=== PATIENT | female | born 1995 | race Hispanic/Latino ===

== ENCOUNTER 2025-09-12 03:53 | Inpatient (IN) | payer SELFPAY ==
[2025-09-12 04:42] LABS: Glucose, Urine Negative (Negative); Protein,Urine Dip Negative (Negative); RBC 0-2 /HPF (0-5)
[2025-09-12 04:50] LABS: Amphetamine,Urine NEGATIVE (NEGATIVE); Barbiturate,Urine NEGATIVE (NEGATIVE); Benzodiazepine,Urine NEGATIVE (NEGATIVE); Cocaine,Urine NEGATIVE (NEGATIVE); Methadone,Urine NEGATIVE (NEGATIVE); Opiate,Urine NEGATIVE (NEGATIVE); PCP,Urine NEGATIVE (NEGATIVE); THC,Urine NEGATIVE (NEGATIVE)
[2025-09-12 05:42] LABS: BASOPHIL % 0.4 % (0.1-1.2); Basophil (Absolute #) 0.03 x10^3/uL (0.01-0.08); Eosinophil (Absolute #) 0.02 x10^3/uL (0.04-0.36); Hematocrit 39.9 % (34.1-44.9); Hemoglobin 13.3 g/dL (11.2-15.7); IMMATURE GRAN # 0.04 x10^3u/L (0.001-0.031); IMMATURE GRAN % 0.5 % (0.001-0.429); Lymphocyte (Absolute #) 2.23 x10^3/uL (1.18-3.74); Mean Corpuscular Hemoglobin 28.1 pg (25.6-32.2); Mean Corpuscular Hgb Concent. 33.3 g/dL (32.2-35.5); Monocyte (Absolute #) 0.65 x10^3/uL (0.24-0.86); NUCLEATED RBC # 0.00 x10^3u/L (0.00-0.012); NUCLEATED RBC % 0.0 % (0.00-0.2); Platelet Count 241 x10^3/uL (182-369); Red Blood Count 4.74 x10^6/uL (3.93-5.22); White Blood Count 7.7 x10^3/uL (3.98-10.04)
[2025-09-12] MEDS ORDERED: Lactated Ringers 1,000 ML IV ONE ×2 (06:13→09:49)
[2025-09-12] MEDS: Lactated Ringers 1,000 ML IV ONE (06:15)
[2025-09-12 06:37] LABS: ABO TYPING O; RH TYPING POSITIVE
[2025-09-12] MEDS: Lactated Ringers 1,000 ML IV SCH (07:17)
[2025-09-12] MEDS ORDERED: Reglan 10 MG/2 ML IV SCH (08:00)
[2025-09-12] MEDS ORDERED: SOD CITRATE-CITRIC ACID SOLN PO SCH (08:00)
[2025-09-12] MEDS ORDERED: Pepcid 20 MG VIAL IV SCH (08:00)
[2025-09-12] MEDS ORDERED: Astramorph-Pf 5 MG/10 ML ONE (09:06)
[2025-09-12] MEDS ORDERED: Pitocin 10 UNITS/ML ONE ×2 (09:07→09:56)
[2025-09-12 09:09] LABS: INR 0.89 (0.8-3.0); PROTIME 10.0 SECONDS (9.4-12.5); PTT 26.7 SECONDS (25.1-36.5)
[2025-09-12] MEDS ORDERED: Ephedrine Sulfate 50 MG/ML ONE (09:12)
[2025-09-12] MEDS ORDERED: Zofran 4 MG/2 ML VIAL ONE (09:19)
[2025-09-12] MEDS ORDERED: Marcaine 0.5%/Epinephrine 10 ML ONE (09:54)
[2025-09-12] MEDS ORDERED: Versed 2 MG/2 ML Injection ONE (10:02)
[2025-09-12] MEDS ORDERED: Zofran 4 MG/2 ML VIAL IV PRN (11:53)
[2025-09-12] MEDS ORDERED: Nubain 10 MG/ML IV PRN (11:53)
[2025-09-12] MEDS ORDERED: CLARITIN 10 MG PO PRN (11:53)
[2025-09-12] MEDS ORDERED: DEMEROL 50 MG IV PRN (11:53)
[2025-09-12] MEDS ORDERED: BENADRYL 50 MG/ML IV PRN (11:53)
[2025-09-12] MEDS ORDERED: Narcan 0.4 MG/ML IV PRN (11:53)
[2025-09-12] MEDS ORDERED: HOLD NARCOTIC ANALGESICS AND SEDATIVES X24 HR MC SCH (12:00)
[2025-09-12] MEDS ORDERED: MORPHINE SULFATE 4 MG INJ IV PRN (12:02)
[2025-09-12] MEDS ORDERED: TUCKS TP PRN (12:33)
[2025-09-12] MEDS ORDERED: Dermoplast Spray TP PRN (12:33)
[2025-09-12] MEDS ORDERED: Mylicon 80MG PO PRN (12:33)
[2025-09-12] MEDS ORDERED: Dulcolax 10 MG SUPP PR PRN (12:33)
[2025-09-12] MEDS ORDERED: LANSINOH 40 GM TOP PRN (12:33)
[2025-09-12] MEDS ORDERED: CORTISONE 1% CREAM TP PRN (12:33)
[2025-09-12] MEDS ORDERED: Anucort-HC SUPPOSITORY PR PRN (12:33)
[2025-09-12] MEDS: Dextrose 5%-Lr IV Solution 1000 ML 1,000 ML IV SCH (12:39)
[2025-09-12] MEDS: TRANEXAMIC 1,000 MG/100ML-NACL 1,000 MG/100 ML PIGGYBACK IV ONE (13:46)
[2025-09-12 13:53] LABS: BASOPHIL % 0.1 % (0.1-1.2); Basophil (Absolute #) 0.02 x10^3/uL (0.01-0.08); Eosinophil (Absolute #) 0 x10^3/uL (0.04-0.36); Hematocrit 33.3 % (34.1-44.9); Hemoglobin 10.7 g/dL (11.2-15.7); IMMATURE GRAN # 0.07 x10^3u/L (0.001-0.031); IMMATURE GRAN % 0.5 % (0.001-0.429); Lymphocyte (Absolute #) 1.23 x10^3/uL (1.18-3.74); Mean Corpuscular Hemoglobin 28.3 pg (25.6-32.2); Mean Corpuscular Hgb Concent. 32.1 g/dL (32.2-35.5); Monocyte (Absolute #) 0.77 x10^3/uL (0.24-0.86); NUCLEATED RBC # 0.00 x10^3u/L (0.00-0.012); NUCLEATED RBC % 0.0 % (0.00-0.2); Platelet Count 190 x10^3/uL (182-369); Red Blood Count 3.78 x10^6/uL (3.93-5.22); White Blood Count 14.4 x10^3/uL (3.98-10.04)
[2025-09-12 15:07] LABS: Glucose, Urine Negative (Negative); Protein,Urine Dip Negative (Negative); RBC 0-2 /HPF (0-5); WBC 0-2 /HPF (0-5)
[2025-09-12] MEDS: Docusate Sodium 100 MG PO SCH (22:00)
[2025-09-13] MEDS: PERCOCET TABLET 5/325MG PO PRN (02:18)
[2025-09-13 05:05] LABS: BASOPHIL % 0.1 % (0.1-1.2); Basophil (Absolute #) 0.01 x10^3/uL (0.01-0.08); Eosinophil (Absolute #) 0.03 x10^3/uL (0.04-0.36); Hematocrit 30.3 % (34.1-44.9); Hemoglobin 9.7 g/dL (11.2-15.7); IMMATURE GRAN # 0.04 x10^3u/L (0.001-0.031); IMMATURE GRAN % 0.4 % (0.001-0.429); Lymphocyte (Absolute #) 2.60 x10^3/uL (1.18-3.74); Mean Corpuscular Hemoglobin 28.0 pg (25.6-32.2); Mean Corpuscular Hgb Concent. 32.0 g/dL (32.2-35.5); Monocyte (Absolute #) 0.82 x10^3/uL (0.24-0.86); NUCLEATED RBC # 0.00 x10^3u/L (0.00-0.012); NUCLEATED RBC % 0.0 % (0.00-0.2); Platelet Count 171 x10^3/uL (182-369); Red Blood Count 3.46 x10^6/uL (3.93-5.22); White Blood Count 10.7 x10^3/uL (3.98-10.04)
[2025-09-13 08:15] LABS: RPR Non Reactive (Non Reactive)
--- NOTE | 2025-09-13 08:28 | PCM.NOTE ---
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 mild lochia, she has been out of bed and ambulated with no complaints. she is tolerating po intake and passing gas. Objective Exam General Appearance: no apparent distress Respiratory Exam: normal breath sounds Cardiovascular Exam: regular rate/rhythm Gastrointestinal/Abdomen Exam: soft, normal bowel sounds, other (optifoam dressing clean, dry, intact) Extremity Exam: normal inspection Objective Data Vital Signs: Vital Signs - 24 hr Temp Pulse Resp BP BP Pulse Ox 09/13/25 04:00 98.8 F 96 H 16 108/58 98 09/13/25 03:00 97 09/13/25 02:00 98 09/13/25 00:59 99 09/13/25 00:00 98.2 F 95 H 18 94/55 97 09/12/25 23:00 98 09/12/25 22:00 98 09/12/25 21:00 98 09/12/25 20:00 98.8 F 81 18 101/62 98 09/12/25 18:52 97 09/12/25 18:00 98.3 F 81 15 96/51 99 09/12/25 16:53 98 09/12/25 16:45 97.8 F 09/12/25 16:30 98.0 F 84 15 97/56 98 09/12/25 16:00 99 09/12/25 15:35 80 16 106/70 98 09/12/25 15:00 98.1 F 88 16 112/68 98 09/12/25 14:40 97.9 F 83 16 98/68 99 09/12/25 14:00 97.3 F 92 H 16 98/68 100 09/12/25 13:30 78 16 87/49 100 09/12/25 13:00 100 09/12/25 12:50 97.8 F 86 16 87/59 100 09/12/25 12:20 86 16 97/56 100 09/12/25 12:10 115 H 16 95/49 100 09/12/25 12:05 97.6 F 09/12/25 12:00 100 09/12/25 11:50 97.8 F 94 H 16 98/55 99 09/12/25 11:35 97.3 F 112 H 16 102/51 100 09/12/25 11:20 97.8 F 103 H 16 108/52 100 09/12/25 08:55 77 18 126/76 Pain Assessment - Last Documented Pain Intensity 2 Pain Scale Used 0-10 Pain Scale Intake and Output: Intake & Output 09/10/25 09/11/25 09/12/25 09/13/25 11:59 11:59 11:59 11:59 Intake Total 1400 Output Total 1575 Balance -175 Weight 70.307 kg Lab Results: Lab Results-Last 24 Hours 09/12/25 09/12/25 09/12/25 Range/Units 05:24 05:24 09:41 WBC (3.98-10.04) x10^3/uL RBC (3.93-5.22) x10^6/uL Hgb (11.2-15.7) g/dL Hct (34.1-44.9) % MCV (79.4-94.8) fL MCH (25.6-32.2) pg MCHC (32.2-35.5) g/dL RDW (11.7-14.4) % Plt Count (182-369) x10^3/uL MPV (9.4-12.3) fL Gran % (34.0-71.1) % Immature Gran % (Auto) (0.001-0.429) % Nucleat RBC Rel Count (0.00-0.2) % Eos # (Auto) (0.04-0.36) x10^3/uL Immature Gran # (Auto) (0.001-0.031) x10^3u/L Absolute Lymphs (auto) (1.18-3.74) x10^3/uL Absolute Monos (auto) (0.24-0.86) x10^3/uL Absolute Nucleated RBC (0.00-0.012) x10^3u/L Lymphocytes % (19.3-51.7) % Monocytes % (4.7-12.5) % Eosinophils % (0.7-5.8) % Basophils % (0.1-1.2) % Absolute Granulocytes (1.56-6.13) x10^3/uL Basophils # (0.01-0.08) x10^3/uL PT 10.0 (9.4-12.5) SECONDS INR 0.89 (0.8-3.0) APTT 26.7 (25.1-36.5) SECONDS Urine Color Yellow (Yellow) Urine Appearance Clear (Clear) Urine pH 6.5 (4.6-8.0) Ur Specific [place] 1.010 (1.005-1.030) Urine Protein Negative (Negative) Urine Glucose (UA) Negative (Negative) mg/dL Urine Ketones Negative (Negative) Urine Blood Small A (Negative) Urine Nitrite Negative (Negative) Urine Bilirubin Negative (Negative) Urine Urobilinogen 0.2 (0.2) mg/dL Ur Leukocyte Esterase Negative (Negative) U Hyaline Cast (Auto) NONE SEEN (0-2) /LPF Urine Microscopic RBC 0-2 (0-5) /HPF Urine Microscopic WBC 0-2 (0-5) /HPF Ur Epithelial Cells None Seen (None Seen) /HPF Urine Bacteria None Seen (None Seen) /HPF RPR Non Reactive (Non Reactive) 09/12/25 09/13/25 Range/Units 13:50 05:05 WBC 14.4 H 10.7 H (3.98-10.04) x10^3/uL RBC 3.78 L 3.46 L (3.93-5.22) x10^6/uL Hgb 10.7 L 9.7 L (11.2-15.7) g/dL Hct 33.3 L 30.3 L (34.1-44.9) % MCV 88.1 87.6 (79.4-94.8) fL MCH 28.3 28.0 (25.6-32.2) pg MCHC 32.1 L 32.0 L (32.2-35.5) g/dL RDW 14.1 14.1 (11.7-14.4) % Plt Count 190 171 L (182-369) x10^3/uL MPV 9.6 9.5 (9.4-12.3) fL Gran % 85.4 H 67.2 (34.0-71.1) % Immature Gran % (Auto) 0.5 H 0.4 (0.001-0.429) % Nucleat RBC Rel Count 0.0 0.0 (0.00-0.2) % Eos # (Auto) 0 L 0.03 L (0.04-0.36) x10^3/uL Immature Gran # (Auto) 0.07 H 0.04 H (0.001-0.031) x10^3u/L Absolute Lymphs (auto) 1.23 2.60 (1.18-3.74) x10^3/uL Absolute Monos (auto) 0.77 0.82 (0.24-0.86) x10^3/uL Absolute Nucleated RBC 0.00 0.00 (0.00-0.012) x10^3u/L Lymphocytes % 8.6 L 24.3 (19.3-51.7) % Monocytes % 5.4 7.7 (4.7-12.5) % Eosinophils % 0.0 L 0.3 L (0.7-5.8) % Basophils % 0.1 0.1 (0.1-1.2) % Absolute Granulocytes 12.28 H 7.21 H (1.56-6.13) x10^3/uL Basophils # 0.02 0.01 (0.01-0.08) x10^3/uL PT (9.4-12.5) SECONDS INR (0.8-3.0) APTT (25.1-36.5) SECONDS Urine Color (Yellow) Urine Appearance (Clear) Urine pH (4.6-8.0) Ur Specific [place] (1.005-1.030) Urine Protein (Negative) Urine Glucose (UA) (Negative) mg/dL Urine Ketones (Negative) Urine Blood (Negative) Urine Nitrite (Negative) Urine Bilirubin (Negative) Urine Urobilinogen (0.2) mg/dL Ur Leukocyte Esterase (Negative) U Hyaline Cast (Auto) (0-2) /LPF Urine Microscopic RBC (0-5) /HPF Urine Microscopic WBC (0-5) /HPF Ur Epithelial Cells (None Seen) /HPF Urine Bacteria (None Seen) /HPF RPR (Non Reactive) Medications: Medications Generic Name Dose Route Start Last Admin Trade Name Freq PRN Reason Stop Dose Admin Acetaminophen 500 - 1,000 mg 09/12/25 12:33 Acetaminophen 500 Mg Tablet PO 10/12/25 12:32 Q4H PRN PRN MILD PAIN Hydrocodone Bitart/Acetaminophen 1 tab 09/12/25 12:33 Hydrocodone/Apap 5/325 1 Tab Tablet PO 09/17/25 12:32 Q4H PRN PRN SEVERE PAIN Benzocaine 1 gm 09/12/25 12:33 Benzocaine/Lanolin/Aloe Vera 85 Gm Can TP 10/12/25 12:32 UD PRN PAIN Bisacodyl 10 mg 09/12/25 12:33 Bisacodyl 10 Mg Supp.Rect NC 10/12/25 12:32 PRN PRN CONSTIPATION Diphenhydramine HCl 12.5 - 25 mg 09/12/25 11:53 Diphenhydramine Hcl 50 Mg/Ml Vial IV 09/13/25 11:52 Q6H PRN PRN ITCHING Docusate Sodium 100 mg 09/12/25 22:00 09/12/25 22:00 Docusate Sodium 100 Mg Capsule PO 10/12/25 21:59 100 mg BID HERMES Administration Emollient Ointment 0 gm 09/12/25 12:33 Lansinoh 40 Gm Tube TOP 10/12/25 12:32 PRN PRN PAIN Hydrocortisone 0.5 gm 09/12/25 12:33 Hydrocortisone 1% Cream 28 Gm Tube TP 10/12/25 12:32 PRN PRN ITCHING Hydrocortisone Acetate 25 mg 09/12/25 12:33 Hydrocortisone Acetate 25 Mg Supp.Rect NC 10/12/25 12:32 PRN PRN HEMORRHOIDS Lactated Ringer's 1,000 mls @ 125 mls/hr 09/12/25 07:30 09/12/25 07:17 Lactated Ringers IV 10/12/25 07:29 125 mls/hr .Q8H HERMES Administration Dextrose/Lactated Ringer's 1,000 mls @ 125 mls/hr 09/12/25 12:00 09/12/25 15:00 Dextrose 5%-Lr Iv Solution 1000 Ml IV 10/12/25 11:59 125 mls/hr .Q8H HERMES Administration Ibuprofen 800 mg 09/12/25 12:33 Ibuprofen 400 Mg Tablet PO 10/12/25 12:32 Q6H PRN PRN MODERATE PAIN Loratadine 10 mg 09/12/25 11:53 Loratadine 10 Mg Tablet PO 09/13/25 11:52 QDP PRN ITCHING Meperidine HCl 12.5 mg 09/12/25 11:53 Meperidine Hcl 50 Mg/Ml Carp IV 09/13/25 11:52 PRN PRN SHAKING/TREMORS Morphine Sulfate 2 mg 09/12/25 12:02 Morphine Sulfate 4 Mg/Ml Injection IV 09/13/25 12:01 .Q30MIN PRN PRN SEVERE PAIN Nalbuphine HCl 5 mg 09/12/25 11:53 Nalbuphine Hcl 10 Mg/Ml Ampul IV 09/13/25 11:52 Q6H PRN PRN ITCHING Naloxone HCl 0.1 mg 09/12/25 11:53 Naloxone Hcl 0.4 Mg/Ml Ml IV 09/13/25 11:52 PRN PRN RESPIRATORY DEPRESSION Non-Formulary Medication 1 each 09/12/25 12:00 Hold Narcotic Analgesics/Sedatives 1 Each Each 09/13/25 11:59 PRN HERMES Ondansetron HCl 4 mg 09/12/25 11:53 Ondansetron Hcl 4 Mg/2 Ml Vial IV 09/13/25 11:52 PRN PRN NAUSEA Oxycodone/Acetaminophen 1 - 2 tab 09/12/25 11:53 09/13/25 02:18 Oxycodone Hcl/Apap 5 Mg/325 Mg Tablet PO 09/13/25 11:52 1 tab Q4H PRN PRN Administration MODERATE PAIN Polysaccharide Iron Complex 150 mg 09/13/25 10:00 Iron Polysaccharides Complex 150 Mg Capsule PO 10/13/25 09:59 DAILY HERMES Simethicone 80 mg 09/12/25 12:33 Simethicone 80 Mg Tab.Chew PO 10/12/25 12:32 QID PRN PRN INDIGESTION [place] 1 pad 09/12/25 12:33 [place] 1 Pad Med..Pad TP 10/12/25 12:32 PRN PRN ITCHING Discontinued Medications Generic Name Dose Route Start Last Admin Trade Name Freq PRN Reason Stop Dose Admin Bupivacaine HCl/Epinephrine Bitart Confirm 09/12/25 09:54 Bupivacaine Hcl/Epinephrine 10 Ml Vial Administered 09/12/25 09:55 Dose 40 ml .ROUTE .STK-MED ONE Citric Acid/Sodium Citrate 30 ml 09/12/25 08:00 Citric Acid/Sodium Citrate 30 Ml Solution PO 09/12/25 11:47 1HRPRIOR HERMES Ephedrine Sulfate Confirm 09/12/25 09:12 Ephedrine Sulfate 50 Mg/Ml Administered 09/12/25 09:13 Dose 50 mg .ROUTE .STK-MED ONE Famotidine 20 mg 09/12/25 08:00 Famotidine 20 Mg/1 Vial IV 09/12/25 11:47 1HRPRIOR HERMES Lactated Ringer's Confirm 09/12/25 06:13 Lactated Ringers Administered 09/12/25 06:14 Dose 1,000 mls @ ud IV .STK-MED ONE Lactated Ringer's 1,000 mls @ 999 mls/hr 09/12/25 06:14 09/12/25 06:15 Lactated Ringers IV 09/12/25 07:14 999 mls/hr .Q1H1M ONE Administration Cefazolin Sodium 2 gm/ Sodium 100 mls @ 200 mls/hr 09/12/25 07:46 09/12/25 08:55 Chloride IV 09/12/25 08:15 200 mls/hr ONCALLTOOR ONE Administration Lactated Ringer's Confirm 09/12/25 09:49 Lactated Ringers Administered 09/12/25 09:50 Dose 1,000 mls @ ud IV .STK-MED ONE TRANEXAMIC ACID IN NACL,ISO-OS 1,000 mg in 100 mls @ 600 mls/hr 09/12/25 13:41 09/12/25 13:46 Tranexamic 1,000 Mg/100ml-Nacl IV 09/12/25 13:50 600 mls/hr ONCE ONE Administration Metoclopramide HCl 10 mg 09/12/25 08:00 Metoclopramide Hcl 10 Mg/2 Ml Vial IV 09/12/25 11:47 1HRPRIOR HERMES Midazolam HCl Confirm 09/12/25 10:02 Midazolam Hcl 2 Mg/2 Ml Vial Administered 09/12/25 10:03 Dose 2 mg .ROUTE .STK-MED ONE Morphine Sulfate Confirm 09/12/25 09:06 Morphine Sulfate 5 Mg/10 Ml Pf Ampul Administered 09/12/25 09:07 Dose 5 mg .ROUTE .STK-MED ONE Ondansetron HCl Confirm 09/12/25 09:19 Ondansetron Hcl 4 Mg/2 Ml Vial Administered 09/12/25 09:20 Dose 4 mg .ROUTE .STK-MED ONE Oxytocin Confirm 09/12/25 09:07 Oxytocin 10 Units/Ml 10 Units/Ml Vial Administered 09/12/25 09:08 Dose 20 units .ROUTE .STK-MED ONE Oxytocin Confirm 09/12/25 09:56 Oxytocin 10 Units/Ml 10 Units/Ml Vial Administered 09/12/25 09:57 Dose 10 units .ROUTE .STK-MED ONE Assessment/Plan (1) Status post repeat low transverse section Current Visit: Yes Status: Acute Assessment & Plan: doing well, BP normal and patient is doing well today. cbc noted. routine postop care continued Code(s): Z98.891 - HISTORY OF UTERINE SCAR FROM PREVIOUS SURGERY
--- NOTE | 2025-09-13 09:45 | OP ---
SURGERY DATE/TIME: 09/12/2025 [id number] PREOPERATIVE DIAGNOSIS: History of prior section, in active labor. POSTOPERATIVE DIAGNOSIS: History of prior section, in active labor. PROCEDURE: Repeat low transverse section. SURGEON: Hakan Wu MD ANESTHESIA: Spinal by Ochoa Dsouza CRNA. QUANTITATIVE BLOOD LOSS: 677 mL. URINE: 300 mL of clear straw-colored urine in the Mathias. SPECIMENS: None. DESCRIPTION OF PROCEDURE AND FINDINGS: The patient presented to Labor and Delivery this morning with regular contractions and cervical change and was found to be in early labor, therefore, was consented for repeat low transverse section, taken to the operating room where she underwent spinal anesthesia and then was prepped and draped in usual sterile fashion. After adequate level of anesthesia was assessed, a low transverse skin incision was made by knife through the area of the previous scar, carried down through the subcutaneous fat to the level of the fascia. Fascia was nicked on both sides of the midline and extended into horizontal using curved Louie scissors. Superior free edge of the fascia was then grasped with David clamps and the underlying rectus muscles were dissected free. The same was repeated inferiorly. Peritoneal cavity was then entered bluntly and in horizontal fashion extended. Bladder blade was then inserted. Bladder flap was created and reflected over the lower uterine segment. Then, a horizontal uterine incision was made by knife, carried down to the amniotic membrane level which was carefully artificially ruptured and revealed clear fluid. A viable male from the vertex presentation was delivered with a strong cry present on the operative field. Oropharynx and nares were bulb suctioned free, then the cord was clamped and cut and he was handed off to the waiting nursery team. The placenta was manually extracted and then uterus was exteriorized. Uterine cavity was sponge curetted clean with lap sponge, and then uterine incision was closed with #1 chromic in a running locked fashion. Good closure and good hemostasis were achieved at that level. Posterior cul-de-sac was wiped free of blood and clot with a moist lap sponge, and then the uterus was returned to the peritoneal cavity. Lateral gutters were wiped free of blood and clot. Uterine incision was again carefully inspected at that level and noted to be well closed with good hemostasis. At that point, I verified with Anesthesia, there was clear straw-colored urine in the Mathias catheter, no indications of any complications. Next, the fascia was closed with 0 Vicryl in a running fashion. Good closure and good hemostasis were achieved at that level. Subcutaneous fat was irrigated with warm sterile saline and any areas of bleeding were cauterized with electrocautery. Skin layer was then closed with 4-0 undyed Vicryl in a running subcuticular fashion with good closure achieved at that level. Steri-Strips and an occlusive dressing were placed over the incision. She was transferred to the recovery room in good condition.
[2025-09-13] MEDS: FERREX 150 PO SCH (10:23)
[2025-09-13] MEDS: THERAGRAN MULTIVITAMIN PO SCH (10:24)
[2025-09-13] MEDS: Flagyl 500 MG PO SCH (10:25)
[2025-09-13] MEDS: SYNTHROID 50 MCG PO SCH (10:26)
[2025-09-13] MEDS: Adacel Vial IM ONE (10:39)
[2025-09-13] MEDS: NORCO 5/325 MG PO PRN (15:43)
[2025-09-14] MEDS: MOTRIN 400 MG PO PRN (00:15)
--- NOTE | 2025-09-14 11:23 | PCM.DS ---
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 arrived in active labor the day after removal of cerclage with MFM Dr Cooper. doing great postop, mild lochia, pain well controlled, tolerating po intake - Vitals & Intake/Output Vital Signs: Vital Signs Temperature 97.7 F 09/14/25 08:42 Pulse Rate 79 09/14/25 08:42 Respiratory Rate 14 09/14/25 08:42 Blood Pressure 111/59 09/14/25 08:42 O2 Sat by Pulse Oximetry 98 09/14/25 08:42 Intake & Output: Intake & Output 09/11/25 09/12/25 09/13/25 09/14/25 11:59 11:59 11:59 11:59 Intake Total 1900 1000 Output Total 1575 Balance 325 1000 Weight 70.307 kg - Lab Result Diagrams: 09/13/25 05:05 Micro Results-Entire Visit: Microbiology 09/12/25 09:41 Urine Culture - Final Catherized NO GROWTH 09/12/25 04:31 Urine Culture - Final Urine, Void NO GROWTH Discharge Exam General Appearance: no apparent distress Neurologic Exam: alert, oriented x 3 Respiratory Exam: normal breath sounds, lungs clear, No respiratory distress Cardiovascular Exam: regular rate/rhythm, normal heart sounds Gastrointestinal/Abdomen Exam: other (optifoam dressing clean, dry, intact) Extremity Exam: normal inspection, normal range of motion Skin Exam: normal color, warm, dry Final Diagnosis/Problem List - Final Discharge Diagnosis/Problem (1) Status post repeat low transverse section Current Visit: Yes Status: Acute Code(s): Z98.891 - HISTORY OF UTERINE SCAR FROM PREVIOUS SURGERY - Discharge Disposition: Home, Self-Care Condition: Stable Prescriptions: New Hydrocodone/Acetaminophen [Hydrocodone-Acetamin 5-325 mg] 1 tab PO Q6HPRN PRN #20 tablet MDD 4 PRN Reason: Pain Continue Levothyroxine Sodium 50 Mcg [Synthroid 50 Mcg] 50 mcg PO DAILY Metronidazole 500 mg [Flagyl 500 MG] 500 mg PO BID Vit 28/Iron Fum/Folic [Theranatal Core Nutrition Tab] 1 tab PO DAILY Follow up with: CHARLIE MCGOVERN MD [Primary Care Provider, [facility]] - 09/19/25 10:30 am
[2025-09-14] MEDS: TYLENOL EXTRA STRENGTH 500 MG PO PRN (20:27)
[2025-09-15 08:18] VITALS: BP 115/59; PULSE 79; RESP 14; TEMP 98.1; O2SAT 98
== END 2025-09-14 15:40 | disposition home or self-care (01) | DRG 788 ==
LOC: OB 03:53 → UNDOADMOB 03:53 → OB 08:00 → OBSVTOIN 08:00
PROVIDERS: ADMIT Family Medicine; ATTEND Family Medicine
PROC: 10D00Z1 Extraction of Products of Conception, Low, Open Approach (ICD-10-PCS; principal; 2025-09-12)
DX: O34.219 Maternal care for unspecified type scar from previous cesarean delivery (principal); Z3A.36 36 weeks gestation of pregnancy; Z37.0 Single live birth